=== PATIENT | female | born 1995 | race Hispanic/Latino ===

== ENCOUNTER → 2021-08-18 15:19 | Outpatient (CLI) | payer OTHER, SELFPAY ==
--- NOTE | ~2021-08-18 | US_ITS ---
EXAMINATION: US transvaginal DATE: 08/18/2021 15:43 INDICATION: Excessive and frequent menstruation Comparison:No prior studies for comparison. TECHNIQUE: Multiple endovaginal sonographic images of the pelvis performed. FINDINGS: The uterus measures 7.4 x 3.3 x 4.4 cm. The endometrial complex measures 3 mm. The right ovary measures 3.1 x 2.7 x 1.8 cm and the left ovary measures 3 x 2.2 x 2.7 cm. There are small follicles in each ovary. Normal doppler signal in both ovaries. There is no free fluid in the pelvis. There are no abnormal masses seen on either side. IMPRESSION: 1. Unremarkable pelvic ultrasound Reviewed, dictated and finalized at location A. GING EDITOR
== END ==
PROVIDERS: Visit Provider Nurse Practitioner
DX: N92.0 Excessive and frequent menstruation with regular cycle (principal)
CPT/HCPCS: 76830

== ENCOUNTER → 2021-10-20 13:22 | Outpatient (CLI) | payer OTHER, SELFPAY ==
--- NOTE | ~2021-10-20 | US_ITS ---
EXAMINATION: US transvaginal DATE: 10/20/2021 13:40 INDICATION: Pelvic pain and discharge Comparison:Ultrasound dated 08/18/2021 TECHNIQUE: Multiple endovaginal sonographic images of the pelvis performed. FINDINGS: The uterus measures 7.7 x 3.4 x 4.5 cm. The endometrial complex measures 2 mm. The right ovary measures 3.5 x 1.3 x 2.5 cm and the left ovary measures 3.4 x 2 x 2.4 cm. There are small follicles in each ovary. Normal doppler signal in both ovaries. There is no free fluid in the pelvis. There are no abnormal masses seen on either side. IMPRESSION: 1. Unremarkable pelvic ultrasound. Reviewed, dictated and finalized at location A. O MACHINE OPERATOR
== END ==
PROVIDERS: Visit Provider Nurse Practitioner
DX: R10.2 Pelvic and perineal pain (principal)
CPT/HCPCS: 76830

== ENCOUNTER 2021-12-05 19:04 | Emergency (ER) | payer OTHER, SELFPAY ==
--- NOTE | 2021-12-05 19:06 | ED.EAR ---
HPI - Ear Problem General Chief complaint: Ear Stated complaint: Ear Pain Time Seen by Provider: 12/05/21 19:11 Source: patient, RN notes reviewed and old records reviewed Mode of arrival: ambulatory Limitations: no limitations History of Present Illness HPI Narrative: 26-year-old female presents to the [facility] with complaints of left ear pain. States that she just finished some amoxicillin for a viral infection. Denies fevers. Had used a Q-tip in her ear to help with the discomfort. No other treatment prior to arrival MD Complaint: ear pain (left) Related Data Home Medications Medication Instructions Recorded Confirmed bupropion HCl 150 mg 24 hr tablet, 150 mg PO DAILY 10/18/21 12/05/21 extended release Allergies Allergy/AdvReac Type Severity Reaction Status Date / Time Cat Dander Allergy Mild ITCHING Uncoded 12/05/21 19:21 Dog Dander Allergy Mild ITCHING Uncoded 12/05/21 19:21 red food dye Allergy Hives Uncoded 12/05/21 19:21 Review of Systems Review of Systems: All systems reviewed & are unremarkable except as noted in HPI and below Constitutional: Constitutional: Reports no additional constitutional complaints, Denies chills and Denies fever(s) Eyes: Eyes: Reports no additional eye complaints ENT: Reports as per HPI, Denies change in voice, Denies dental pain, Denies vertigo, Denies dizziness and Denies throat swelling Comments: Ear pain, left Cardiovascular: Cardiovascular: Reports no additional cardiovascular complaints, Denies chest pain and Denies dyspnea Respiratory: Respiratory: Reports no additional respiratory complaints, Denies cough and Denies dyspnea Gastrointestinal: Gastrointestinal: Reports no additional gastrointestinal complaints, Denies abdominal pain, Denies nausea and Denies vomiting Musculoskeletal: Musculoskeletal: Reports no additional musculoskeletal complaints Integumentary/Breasts: Skin/Breast: Reports system reviewed and no additional complaints, except as docu Neurologic: Reports system reviewed and no additional complaints, except as documented, Denies vertigo and Denies dizziness Psychiatric: Psychiatric: Reports no additional psychiatric complaints Allergic/Immunologic: Allergic/Immunologic: Reports no additional allergic/immunologic complaints and Denies throat swelling PMFSH Past Medical History Medical History (Updated 12/05/21 @ 19:28 by Diana Pierce APRN) Anxiety BMI greater than 40 Depression Family History Family History Mother Family history of malignant neoplasm of cervix Social History Social History Smoking status: Current some day smoker Second hand tobacco smoke exposure: No Alcohol intake: current Comments At the time of my signature, I reviewed and agree with the nursing past medical, surgical, social, and family history. There is no relevant family history pertinent to the patient complaint. Exam Const: General: healthy appearing and no acute distress Nutritional Appearance: well nourished and obese Orientation/consciousness: patient oriented x3 Limitations: no limitations HENMT: Head: normal to inspection Ears: external ears normal, TM's normal bilaterally and Abnormal EAC present erythema on the left, edema and EAC tenderness on the left; no foreign body and no otic discharge General nose exam: Normal external nose present and Normal nasal mucous membranes and turbinates present Face and sinus: normal facial exam Mouth: Yes Normal oral and palatal mucosa present Throat: posterior oropharynx normal, tonsils normal and uvula midline Eyes: Conjunctivae: conjunctivae normal Pupils: Equal, round and reactive pupils present Neck: Neck: normal visual inspection, no lymphadenopathy and no meningeal signs Chest: Chest palpation & inspection: normal inspection of the chest Resp: Effort & Inspection: normal respiratory ef
[2021-12-05 19:13] VITALS: BP 128/81; PULSE 89; RESP 16; TEMP 36.4; O2SAT 99
== END 2021-12-05 19:25 | disposition home or self-care (01) ==
PROVIDERS: Emergency Provider Nurse Practitioner; PCP Family Medicine
DX: H60.92 Unspecified otitis externa, left ear (principal); F17.200 Nicotine dependence, unspecified, uncomplicated; F41.9 Anxiety disorder, unspecified; F32.A Depression, unspecified
CPT/HCPCS: 99213; G0463

== ENCOUNTER 2022-01-02 01:07 | Day surgery (SDC) | payer OTHER, SELFPAY ==
[2021-12-27 14:12] VITALS: BMI 44.1
[2022-01-02 06:28] VITALS: BP 130/77; PULSE 84; RESP 20; TEMP 36.8; O2SAT 98
[2022-01-02] MEDS: LACTATED RINGERS 1,000 ML 150 ML IV CONT (06:36)
--- NOTE | 2022-01-02 07:21 | WPDHPUPDATE1 ---
History and Physical Update Update Date/Time: 01/02/22 07:21 History and Physical has been reviewed, including an updated exam of the patient. There are NO changes in the patient's condition. Risks, benefits, and alternatives have been discussed and questions answered. Patient agrees to proceed with procedure.
--- NOTE | 2022-01-02 07:24 | P.PNAN_ITS ---
Anes - Initial Pre Proc Eval Procedure: Operation Date: 01/02/22 07:30 Proposed Procedures p Colonoscopy - Adrien Basilio MD Date/Time: 01/02/22 07:24 Surgeon: Adrien Basilio MD Pre Op Diagnosis: diarrhea Patient Data Age: 26 Gender: F Height: 1.52 m Weight: 102.8 kg Last Vital Signs Temp 98.2 F 01/02/22 06:28 Pulse 84 01/02/22 06:28 Resp 20 01/02/22 06:28 BP 130/77 01/02/22 06:28 Pulse Ox 98 01/02/22 06:28 Allergies Allergy/AdvReac Type Severity Reaction Status Date / Time red food dye Allergy Intermediate Hives Uncoded 01/02/22 06:24 Cat Dander Allergy Mild ITCHING Uncoded 01/02/22 06:24 Dog Dander Allergy Mild ITCHING Uncoded 01/02/22 06:24 Home Medications Medication Instructions Recorded Confirmed Type albuterol sulfate 2 puff INHALATION Q4-6H PRN 12/27/21 12/27/21 History bupropion HCl 300 mg PO DAILY 12/27/21 12/27/21 History norethindrone-e.estradiol-iron [Lo 1 tablet PO DAILY 12/27/21 12/27/21 History Loestrin Fe] Patient hx anesthesia problems: none Family hx anesthesia problems: none Results Review: All pre-operative results and documents have been reviewed as part of the pre-operative evaluation. [facility] Past Medical History Medical History (Updated 12/30/21 @ 15:50 by Derian Quarles DO) Anxiety BMI greater than 40 Depression Family History Family History Mother Family history of malignant neoplasm of cervix Social History Social History (Updated 12/23/21 @ 10:50 by Linda Macias MA) Smoking status: Current some day smoker Tobacco type: e-cigarettes/vaping Second hand tobacco smoke exposure: No Additional smoking assessment comments: TRYING TO QUIT VAPING Alcohol intake: current Substance use: current Substance use type: marijuana Other substance usage details: OCCASSIONAL MARIJUANA Living arrangements: with family Gender identity (if verbalized by the patient): Female Spiritual care concerns: No Anes - Eval Final PreProcedure Day of Procedure 01/02/22 07:24 Patient weight: morbidly obese Heart: regular rate and rhythm Lungs: clear to auscultation Airway: Mallampati scale class III Neurological: alert and oriented Last oral intake: >/= 8 hours ASA classification: III Emergent: no Anesthetic plan: proceed Anesthesia type and monitoring: general GIVS and standard monitoring Results Review: All pre-operative results and documents have been reviewed as part of the pre-operative evaluation. Informed Consent: The patient's anesthetic plan and its attendant risks and benefits were discussed with the patient/family/POA. Questions were solicited and answers provided to the satisfaction of the patient/family/POA.
[2022-01-02 07:44] VITALS: BP 95/49; PULSE 61; RESP 26; O2SAT 100
[2022-01-02 07:54] VITALS: BP 102/64; PULSE 60; RESP 23; O2SAT 100
[2022-01-02 08:04] VITALS: BP 105/64; PULSE 61; RESP 21; O2SAT 100
== END 2022-01-02 08:13 | disposition home or self-care (01) ==
PROVIDERS: PCP Family Medicine; Visit Provider Internal Medicine Gastroenterology
PROC: 0DJD8ZZ Inspection of Lower Intestinal Tract, Via Natural or Artificial Opening Endoscopic (ICD-10-PCS; CPT 45378; principal; 2022-01-02 07:30)
DX: R14.0 Abdominal distension (gaseous) (principal); R19.7 Diarrhea, unspecified; F41.8 Other specified anxiety disorders; Z79.51 Long term (current) use of inhaled steroids; F17.290 Nicotine dependence, other tobacco product, uncomplicated; F12.90 Cannabis use, unspecified, uncomplicated; E66.01 Morbid (severe) obesity due to excess calories; Z68.41 Body mass index [BMI] 40.0-44.9, adult
CPT/HCPCS: 45380; 88305; J2001; J2704; J7120

== ENCOUNTER 2022-11-30 15:45 | Outpatient (CLI) | payer OTHER, SELFPAY ==
--- NOTE | ~2022-11-30 | US_ITS ---
US breast LT complete INDICATION: Intermittent nipple discharge for 6 years TECHNIQUE: Dedicated left breast ultrasound involving all 4 quadrants in the subareolar location COMPARISON: No prior studies for comparison. FINDINGS: The left breast is composed of normal heterogeneous echotexture without focal solid or cyst ic mass. IMPRESSION: 1: Normal left breast ultrasound. BI-RADS CATEGORY 1 - NEGATIVE Reviewed, dictated and finalized at location A.
== END 2022-11-30 15:46 | disposition home or self-care (01) ==
PROVIDERS: PCP Family Medicine; Visit Provider Nurse Practitioner
DX: N64.52 Nipple discharge (principal)
CPT/HCPCS: 76641

== ENCOUNTER 2023-09-28 08:12 | Emergency (ER) | payer OTHER, SELFPAY ==
--- NOTE | ~2023-09-28 | US_ITS ---
EXAMINATION: US pelvic complete DATE: 09/28/2023 11:07 INDICATION: Pelvic pain after intercourse Comparison:Ultrasound dated 10/20/2021 TECHNIQUE: Multiple transabdominal and endovaginal sonographic images of the pelvis performed. FINDINGS: The uterus measures 7.7 x 3.5 x 4.3 cm. There are nabothian cysts. The endometrial complex measures 7 mm. The right ovary measures 4.2 x 2.9 x 3.2 cm and the left ovary measures 2.8 x 1.8 x 2.1 cm. There is a complicated cyst of the right ovary measuring 2.5 cm There are small follicles in each ovary. Maribel l doppler signal in both ovaries. There is trace free fluid in the pelvis. There are no abnormal masses seen on either side. IMPRESSION: 1. Complicated 2.5 cm right ovarian cyst. Reviewed, dictated and finalized at location B. OAT CAPTAIN
[2023-09-28 08:16] VITALS: BP 144/76; PULSE 86; RESP 20; TEMP 36.6; O2SAT 100
[2023-09-28] MEDS: SODIUM CHLORIDE 0.9% IV 1,000 ML 999 ML IV CONT (09:12)
[2023-09-28] MEDS: KETOROLAC 30 MG/ML VIAL (*BKC) IV PUSH (09:12)
[2023-09-28 09:16] LABS: Basophils Absolute Auto 0.1 K/mm3 (0.0-0.1); Basophils Percent Auto 0.7 % (0.2-1.2); Eosinophils Absolute Auto 0.4 K/mm3 (0-0.3); Eosinophils Percent Auto 3.9 % (0-4.4); Hematocrit 38.4 % (37.0-47.0); Hemoglobin 12.7 g/dL (12.0-15.0); Immature Granulocyte Absolute 0.02 K/mm3 (0.00-0.031); Immature Granulocyte Percent A 0.2 % (0-0.5); Lymphocytes Absolute Auto 2.27 K/mm3 (0.9-3.2); Lymphocytes Percent Auto 25.4 % (18.3-44.2); Mean Corpuscular HGB Conc 33.1 g/dl (32-36); Mean Corpuscular Hemoglobin 29.6 pg (26-34); Mean Corpuscular Volume 89.5 fl (80-100); Mean Platelet Volume 10.2 fl (7.4-10.4); Monocytes Absolute Auto 0.5 K/mm3 (0.1-0.6); Monocytes Percent Auto 5.7 % (2.6-8.5); Neutrophils Absolute Auto 5.7 K/mm3 (1.3-6.7); Neutrophils Percent Auto 64.1 % (45.5-73.1); Platelet Count Result 229 k/mm3 (150-375); Red Blood Count 4.29 M/mm3 (4.2-5.4); Red Cell Distribution Width 12.4 % (11.5-14.5)
[2023-09-28 09:22] LABS: Appearance Urine Cloudy (Clear); Bacteria Urine 1+ /hpf; Bilirubin Urine Negative (Negative); Blood Urine Negative (Negative); Color Urine Yellow (Yellow); Glucose Urine UA Negative (Negative); Ketones Urine Negative (Negative); Leukocyte Esterase Ur Negative LEU/UL (Negative); Nitrate Urine Negative (Negative); Non Pathogenic Casts 0-2; Protein Urine Negative (Negative); RBC Urine 0-2 /hpf (0-2); Specific Grav Ur 1.023 (1.001-1.035); Squamous Epithelial Cell Urine Few /hpf (Few); WBC Urine 0-5 /hpf; pH Urine 7.5 (5.0-9.0)
[2023-09-28 09:24] LABS: Add Urine Microscopic? YES
[2023-09-28 09:31] LABS: Alanine Aminotransferase 14 U/L (6-35); Albumin Level 4.3 g/dL (3.5-5.1); Alkaline Phosphatase 87 U/L (38-126); Anion Gap 7 mmol/L (8-16); Aspartate Amino Transferase 20 U/L (14-36); Bilirubin,Total 0.6 mg/dL (0.2-1.3); Blood Urea Nitrogen 12 mg/dL (7-17); Calcium 9.2 mg/dL (8.4-10.2); Carbon Dioxide 27 mmol/L (22-30); Chloride 105 mmol/L (98-107); Estimated CRCL calculation 133 ml/min; Estimated Glomerular Filt Rate > 60; Glucose 115 mg/dL (65-110); Potassium 3.6 mmol/L (3.4-5.0); Sodium 139 mmol/L (137-145)
[2023-09-28 09:46] VITALS: BP 122/73; PULSE 55; RESP 16; O2SAT 100
[2023-09-28 10:50] LABS: Trichomonas Vag PCR NOT DETECTED (NOT DETECTE)
--- NOTE | 2023-09-28 11:20 | ED.GENADULT ---
HPI - General Adult General Chief complaint: INTERNET SALESPERSON Stated complaint: Pelvic pain Time Seen by Provider: 09/28/23 08:41 History of Present Illness HPI narrative: Patient is a 27-year-old female who presents ER with pelvic pain. He began immediately after having sexual intercourse. Cramping in lower abdomen. No radiation. No vaginal bleeding or vaginal discharge. No concerns for STI. She does report she has had some darker urine recently but no dysuria. Has not had similar symptoms before. No history of ovarian cyst. No piercings that could have caused injury. No leakage of fluid. Related Data Allergies Allergy/AdvReac Type Severity Reaction Status Date / Time venlafaxine AdvReac Intermediate Nausea and Verified 09/28/23 08:13 Vomiting Review of Systems Review of Systems: All systems reviewed & are unremarkable except as noted in HPI and below Constitutional: Constitutional: Reports no additional constitutional complaints ENT: Reports system reviewed and no additional complaints, except as documented Cardiovascular: Cardiovascular: Reports no additional cardiovascular complaints Respiratory: Respiratory: Reports no additional respiratory complaints Gastrointestinal: Gastrointestinal: Reports no additional gastrointestinal complaints Genitourinary: Genitourinary: Denies abnormal vaginal bleeding, Denies nocturia, Denies dysuria, Reports pelvic pain and Denies vaginal discharge [facility] Past Medical History Medical History (Updated 09/28/23 @ 11:21 by Nael Howell MD) Abnormal weight loss Anxiety BMI 36.0-36.9,adult BMI 38.0-38.9,adult BMI greater than 40 delivery delivered Depression PMDD (premenstrual dysphoric disorder) Family History Family History Mother Family history of malignant neoplasm of cervix Depression Father No problems noted. Sibling No problems noted. Social History Social History Smoking status: Current some day smoker Tobacco type: e-cigarettes/vaping Second hand tobacco smoke exposure: No Additional smoking assessment comments: TRYING TO QUIT VAPING Alcohol intake: current Substance use: current Substance use type: marijuana Other substance usage details: OCCASSIONAL MARIJUANA Do You Feel Safe in your Home?: Yes Lack of Transportation: No Lack of Food: Never True Current Housing: I Have Housing Concerned About Future Housing: No Difficulty Paying Gas/Electric Bills: No Difficulty Paying for Meds: No Currently Unemployed: No Education: Trade/Vocational Certificate Difficulty w/ Childcare or Family Care: No Living arrangements: with family Occupation/Education: occupation 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 Gender identity (if verbalized by the patient): Female Spiritual care concerns: No Exam Narrative: GENERAL: Well-appearing, well-nourished, and in no acute distress. HEAD: Normocephalic, atraumatic. ENT: Mucous membranes moist. CHEST: Clear to auscultation. No respiratory distress. HEART: Regular rate and rhythm. Normal peripheral pulses. ABDOMEN: Soft, nontender, nondistended. : Mild suprapubic discomfort. Normal external genitalia. Normal appearing cervix that is nonfriable and nontender. Physiologic discharge. EXTREMITIES: Normal range of motion. No edema. SKIN: Warm, dry, no rash. NEURO: Alert and oriented x3. PSYCH: Normal mood and affect. Course Course Emergency Course: Urine without infection. No GC/chlamydia/Trichomonas. Ultrasound with complex cyst. Recommend follow-up with Gynecology. Patient sees Dr. Prais. Vital Signs Vital signs: Vital Signs Temperature 97.9 F 09/28/23 08:16 Pulse Rate 86 09/28/23 08:16 Respiratory Rate 20 09/28/23 08:16 Blood Pressure 144/76 H 09/28/23 08:16 Pulse Oximetry
[2023-09-28 12:50] VITALS: BP 124/68; PULSE 67; RESP 16; O2SAT 100
[2023-09-28 12:53] LABS: Chlamydia trachomatis NOT DETECTED (NOT DETECTE); Neisseria gonorrhoeae PCR NOT DETECTED (NOT DETECTE)
== END 2023-09-28 13:21 | disposition home or self-care (01) ==
PROVIDERS: Emergency Provider Emergency Medicine; PCP Family Medicine
DX: N83.201 Unspecified ovarian cyst, right side (principal); F17.290 Nicotine dependence, other tobacco product, uncomplicated
CPT/HCPCS: 36415; 76856; 80053; 81001; 81025; 85025; 87491; 87591; 87661; 96361; 96374; 99284; J1885; J7030

== ENCOUNTER 2024-07-14 17:09 | Outpatient (CLI) | payer OTHER, SELFPAY ==
--- NOTE | ~2024-07-14 | XR_ITS ---
AP view of the pelvis and AP and lateral views of the bilateral hips Clinical history: Pain Findings: No acute fracture or dislocation is seen. Osseous alignment is anatomic. Bilateral hip and SI joint spaces are preserved. Soft tissues are unremarkable. Impression: No significant abnormality is seen. Reviewed, dictated and finalized at [facility]. ER Impression: No significant abnormality is seen.
--- NOTE | ~2024-07-14 | XR_ITS ---
EXAMINATION: XR scoliosis survey DATE: 07/14/2024 17:37 INDICATION: Deforming dorsopathy, unspecified. TECHNIQUE: Anteroposterior and lateral views of the entire spine standing were obtained. COMPARISON: None. FINDINGS: Right femoral head stands 6 mm higher than the left. There are 12 pairs of ribs. L5 is a tr ansitional segment. There is 10 degrees dextroscoliosis from T3 to T10 by the Thomas method. There is 9 degrees levocurvature from T10 to L4. IMPRESSION: 1. Right femoral head stands 6 mm higher than the left. 2. 10 degrees dextroscoliosis from T3 to T10 and 9 degrees levocurvature from T10 to L4. Reviewed, dictated and finalized at location A. TRIC GOLF CART REPAIRER IMPRESSION: 1. Right femoral head stands 6 mm higher than the left. 2. 10 degrees dextroscoliosis from T3 to T10 and 9 degrees levocurvature from T 10 to L4.
== END 2024-07-14 17:10 | disposition home or self-care (01) ==
LOC: ANHIMG 17:13
PROVIDERS: PCP Family Medicine; Visit Provider Physician Assistant Medical
DX: M43.9 Deforming dorsopathy, unspecified (principal); M54.50 Low back pain, unspecified; G89.29 Other chronic pain; M25.551 Pain in right hip
CPT/HCPCS: 72082; 73521

== ENCOUNTER 2024-08-04 15:17 | Emergency (ER) | payer OTHER, SELFPAY ==
--- NOTE | ~2024-08-04 | CT_ITS ---
CT pelvis wo con Ordering provider: Estefanía Bertrand PA-C History: . right hip/low back pain . Comparison: None Technique: CT pelvis without oral and IV contrast. . Automated exposure control and iterative recons truction technique were employed. The dose-length product was 702.54 mGy-cm. Findings: BONES: No pelvic fracture or hip dislocation. Attempt of sacralization of L5 with left pseudoarthrosi s is noted. Normal visualized lower lumbar spine. The hip and sacroiliac joint spaces are well maintained. SUPERFICIAL SOFT TISSUES: Normal. PELVIC ORGANS: The bladder is underfilled. VISUALIZED BOWEL AND MESENTERY: Normal. No free air or free fluid. No lymphadenopathy. RETROPERITONEUM: normal. IMPRESSION: No acute osseous abnormalities. Attempt of sacralization of L5 with left pseudoarthrosis. Reviewed, dictated and finalized at location A. CTORY COMPILER
[2024-08-04 15:26] VITALS: BP 134/83; PULSE 74; RESP 20; TEMP 36.5; O2SAT 100
--- NOTE | 2024-08-04 20:11 | ED_ITS ---
HPI - Back Pain/Injury General Chief Complaint: Back Pain/Injury Stated Complaint: back/hip pain Time Seen by Provider: 08/04/24 19:55 Source: patient Mode of arrival: ambulatory Limitations: no limitations History of Present Illness HPI Narrative: This is a 28 year old female that presents to the ER for low back pain. Reports she recently started physical therapy for scoliosis. Reports since starting therapy she has had worsening low back and right hip pain. She has not taken anything for pain today. Denies saddle anesthesia or bowel/bladder incontinence. No recent injuries. Related Data Allergies Allergy/AdvReac Type Severity Reaction Status Date / Time venlafaxine AdvReac Intermediate Nausea and Verified 07/14/24 12:50 Vomiting Review of Systems Review of Systems: CONSTITUTIONAL: Denies fever SKIN: Denies rash MUSCULOSKELETAL: Reports back pain, joint pain, and myalgia. NEUROLOGIC: Denies numbness, or weakness. All systems reviewed & are unremarkable except as noted in HPI and below PMFSH Past Medical History Medical History Abnormal weight loss Anxiety BMI 36.0-36.9,adult BMI 37.0-37.9, adult BMI 38.0-38.9,adult BMI greater than 40 delivery delivered Depression Difficulty concentrating PMDD (premenstrual dysphoric disorder) Family History Family History Mother Family history of malignant neoplasm of cervix Depression Father No problems noted. Sibling No problems noted. Social History Social History Smoking status: Current some day smoker Tobacco type: e-cigarettes/vaping Second hand tobacco smoke exposure: No Additional smoking assessment comments: TRYING TO QUIT VAPING Alcohol intake: current Substance use: current Substance use type: marijuana Other substance usage details: OCCASSIONAL MARIJUANA Do You Feel Safe in your Home?: Yes Lack of Transportation: No Lack of Food: Never True Current Housing: I Have Housing Concerned About Future Housing: No Difficulty Paying Gas/Electric Bills: No Difficulty Paying for Meds: No Currently Unemployed: No Education: Trade/Vocational Certificate Difficulty w/ Childcare or Family Care: No Living arrangements: with family Occupation/Education: occupation 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 Gender identity (if verbalized by the patient): Female Spiritual care concerns: No Exam Narrative: GENERAL: Well-appearing, well-nourished, and in no acute distress. HEAD: Normocephalic, atraumatic. EYES: EOMI. CHEST: Clear to auscultation. No respiratory distress. No wheezes rales or rhonchi HEART: Regular rate and rhythm. No murmur heard. Normal peripheral pulses. BACK: No midline spinal tenderness EXTREMITIES: Normal range of motion. No edema. Normal DP pulses. Strength equal in bilateral lower extremities (5/5) SKIN: Warm, dry, no rash. NEURO: No focal deficits. Alert and oriented x3. PSYCH: Normal mood and affect Course Course Emergency Course: patient updated on workup and agrees with plan of care Vital Signs Vital signs: Vital Signs Temperature 97.7 F 08/04/24 15:26 Pulse Rate 74 08/04/24 15:26 Respiratory Rate 20 08/04/24 15:26 Blood Pressure 134/83 08/04/24 15:26 Pulse Oximetry 100 08/04/24 15:26 Oxygen Delivery Room Air 08/04/24 15:26 Temperature 97.7 F 08/04/24 15:26 Pulse Rate 74 08/04/24 15:26 Respiratory Rate 20 08/04/24 15:26 Blood Pressure 134/83 08/04/24 15:26 Pulse Oximetry 100 08/04/24 15:26 Oxygen Delivery Room Air 08/04/24 15:26 MDM - Back Pain/Injury MDM Narrative Medical decision making narrative: Patient presents to the emergency department for worsening low back pain after starting physical therapy. She is afebrile and nontoxic appearing. She is neurologically intact. CT pelvis shows no acute osseous abnormalities. 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 Patient updated on her workup and agrees plan of care. She is to follow up with primary provider. She was given warnings to return to the ER Differential Diagnosis Differential diagnosis: Likely lumbar radiculopathy, sciatica, strain of lumbar region and other (scoliosis) Lab Data Attestation: I reviewed the patient's lab results. Labs: Lab Results 08/04/24 Range/Units 20:54 POC Urine HCG, Qual Negative (Negative) Imaging Data Radiologist's impression: ITS Impressions Pelvis CT 08/04/24 22:21 IMPRESSION: No acute osseous abnormalities. Attempt of sacralization of L5 with left pseudoarthrosis. Critical Care Time Critical Care Time Critical Care Time: No Discharge Plan Discharge Clinical Impression: Nmhznuofvnbqb-mhfthzmhc-[id number] syndrome Patient Disposition: Home, Self-Care Condition: Improved Instructions: Acute Low Back Pain (ED) Additional Instructions: Return to the ER if you experience fever, weakness, numbness, bowel/bladder incontinence, or any other symptoms that are concerning to you Rest, use ice/heat, take anti-inflammatories (Aleve, Ibuprofen, Naproxen, etc) or Tylenol as needed for pain as well as muscle relaxer (Flexeril) as needed for pain. Muscle relaxers can make you drowsy, do not drive if you take this Follow up with your primary care doctor Prescriptions: New cyclobenzaprine 10 mg tablet 10 mg PO TID PRN (Reason: muscle spasm) Qty: 14 0RF No Action buspirone 5 mg tablet 5 mg PO BID Qty: 60 0RF cholecalciferol (vitamin D3) 1,250 mcg (50,000 unit) capsule 1,250 mcg PO WEEKLY Qty: 8 0RF Follow-up/Referrals: Elvis Robins MD [Physician] - Michael Martinez MD [Primary Care Provider] - 2 Days
[2024-08-04] MEDS: ACETAMINOPHEN 500 MG TABLET 1000 MG PO (20:17)
[2024-08-04] MEDS: KETOROLAC 30 MG/ML VIAL (*BKC) IM (20:18)
[2024-08-04 20:55] LABS: BEDSIDEPREGUCG Negative (Negative)
--- NOTE | 2024-08-04 22:58 | PC.NURSE ---
Assumed care of pt from BHAKTI Patel at this time.
== END 2024-08-04 23:59 | disposition home or self-care (01) ==
PROVIDERS: Emergency Provider Physician Assistant; PCP Family Medicine
DX: M43.27 Fusion of spine, lumbosacral region (principal); M54.30 Sciatica, unspecified side; M41.9 Scoliosis, unspecified
CPT/HCPCS: 72192; 81025; 96372; 99284; A9270; J1885

== ENCOUNTER 2024-08-14 13:12 | Outpatient (CLI) | payer OTHER, SELFPAY ==
--- NOTE | ~2024-08-14 | MR_ITS ---
EXAMINATION: MR lumbar spine wo con DATE: 08/14/2024 13:46 INDICATION: Low back pain. Radiculopathy. TECHNIQUE: Magnetic resonance imaging (MRI) of the lumbar spine was performed without intravenous con trast. Sequences included sagittal T2-weighted FSE, sagittal T2-weighted FS FSE, sagittal T1-weighted FSE, and axial T2-weighted FSE. COMPARISON: None FINDINGS: There is 5 degrees levocurvature of lumbar spine. Vertebral body heights and intervertebral disc heights are normal. The distal spinal cord signal intensity is normal. The conus medullaris is at L1. The following disc levels are specifically discussed: L1-L2: The disc does not extend beyond the endplate margin. There is mild bilateral facet joint osteo arthritis. There is no neural foraminal stenosis. There is no central canal stenosis. L2-L3: The disc does not extend beyond the endplate margin. There is mild bilateral facet joint osteo arthritis. There is no neural foraminal stenosis. There is no central canal stenosis. L3-L4: The disc does not extend beyond the endplate margin. There is mild bilateral facet joint osteo arthritis. There is no neural foraminal stenosis. There is no central canal stenosis. L4-L5: There is a left subarticular zone protrusion with annular fissure. There is severe bilateral f acet joint osteoarthritis. There is mild bilateral neural foraminal stenosis. There is mild central c anal stenosis. L5-S1: The disc does not extend beyond the endplate margin. There is severe left facet joint osteoart hritis. There is no neural foraminal stenosis. There is no central canal stenosis. IMPRESSION: 1. Mild lumbar spondylosis. Reviewed, dictated and finalized at location A. LITY COORDINATOR IMPRESSION: 1. Mild lumbar spondylosis.
== END 2024-08-14 13:13 | disposition home or self-care (01) ==
PROVIDERS: PCP Family Medicine
DX: M47.26 Other spondylosis with radiculopathy, lumbar region (principal)
CPT/HCPCS: 72148

== ENCOUNTER 2024-10-30 19:01 | Emergency (ER) | payer OTHER, SELFPAY ==
[2024-10-30 19:03] VITALS: BP 135/88; PULSE 96; RESP 20; TEMP 36.4; O2SAT 99
[2024-10-30 21:16] VITALS: BP 143/90; PULSE 75; RESP 20; TEMP 37.5; O2SAT 97
[2024-10-30 21:18] LABS: BEDSIDEPREGUCG Negative (Negative)
[2024-10-30 21:32] LABS: Add Urine Microscopic? YES; Appearance Urine Turbid (Clear); Bacteria Urine None Seen /hpf; Bilirubin Urine Negative (Negative); Blood Urine 3+ (Negative); Color Urine Dark Yellow (Yellow); Glucose Urine UA Negative (Negative); Ketones Urine 2+ mg/dL (Negative); Leukocyte Esterase Ur 3+ LEU/UL (Negative); Nitrate Urine Negative (Negative); Non Pathogenic Casts 0-2; Protein Urine 3+ mg/dL (Negative); RBC Urine >100 /hpf (0-2); Specific Grav Ur 1.014 (1.001-1.035); Squamous Epithelial Cell Urine None Seen /hpf (Few); Urobilinogen Urine 0.2 mg/dL (<2.0); WBC Urine >100 /hpf (0-3)
[2024-10-31 01:34] VITALS: BP 142/92; PULSE 91; RESP 16; O2SAT 99
[2024-10-31] MEDS: HYDROcodone/acetaminophen (*CRX) 5-325 MG TABLET 1 TAB PO (01:54)
[2024-10-31] MEDS: KETOROLAC (*BKC) 60 MG/2 ML VIAL IM (01:54)
[2024-10-31] MEDS: ONDANSETRON HCL ODT 4 MG TABLET PO (01:55)
[2024-10-31] MEDS: CIPROFLOXACIN 500 MG TAB PO (01:55)
--- NOTE | 2024-10-31 02:25 | ED.FEMALEGU ---
HPI - Female Genitourinary General Chief complaint: Urogenital-Female Stated complaint: worsening UTI Time Seen by Provider: 10/31/24 00:45 History of Present Illness HPI Narrative: Patient is a 29-year-old female who presents to the ER with UTI symptoms for the past 2-3 days. She reports she has a history of scoliosis and recently got a ?back epidural, so she was unsure whether or not her back pain is related to that. Patient endorses significant lower abdominal pain. She also endorses burning urination and frequency. Patient denies any recent fevers, chest pain, shortness of breath, CVA tenderness, or saddle anesthesia. She reports she had a telehealth visit with a healthcare provider yesterday put her on Macrobid but she reports she has only taken 1 dose so far. Patient endorses a history of obesity for which she takes phentermine, otherwise she has no other pertinent medical history. Related Data Home Medications ?Medication ?Instructions ?Recorded ?Confirmed ?Last Taken ?Type cholecalciferol (vitamin D3) 125 125 mcg PO DAILY 10/13/24 10/21/24 Unknown History mcg (5,000 unit) capsule Allergies Allergy/AdvReac Type Severity Reaction Status Date / Time venlafaxine AdvReac Intermediate Nausea and Verified 10/30/24 19:02 Vomiting Review of Systems Review of Systems: All systems reviewed & are unremarkable except as noted in HPI and below PMFSH Past Medical History Medical History BMI 37.0-37.9, adult PMDD (premenstrual dysphoric disorder) BMI 38.0-38.9,adult delivery delivered BMI 36.0-36.9,adult Abnormal weight loss BMI greater than 40 Anxiety Difficulty concentrating Depression Surgical History Surgical History History of delivery Family History Family History Mother Family history of malignant neoplasm of cervix Depression Father Depression Anxiety Alcoholism Sibling Depression Anxiety Grandparent Diabetes mellitus Heart disease Depression Hypertension Anxiety Social History Social History Smoking status: Current some day smoker Tobacco type: e-cigarettes/vaping Second hand tobacco smoke exposure: No Additional smoking assessment comments: TRYING TO QUIT VAPING Alcohol intake: current Alcohol use details: rarely Substance use: current Substance use type: marijuana Other substance usage details: OCCASSIONAL MARIJUANA Do You Feel Safe in your Home?: Yes Lack of Transportation: No Lack of Food: Never True Current Housing: I Have Housing Concerned About Future Housing: No Difficulty Paying Gas/Electric Bills: No Difficulty Paying for Meds: No Currently Unemployed: No Education: Trade/Vocational Certificate Difficulty w/ Childcare or Family Care: No Living arrangements: with family Occupation/Education: occupation 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 Gender identity (if verbalized by the patient): Female Spiritual care concerns: No Exam Narrative: GENERAL: Well appearing, well-nourished, non-toxic, in mild distress d/t abdominal pain. HEAD: Normocephalic, atraumatic. NECK: Supple. No adenopathy, no masses. RESPIRATORY: Airway patent, respirations nonlabored. Clear to auscultation bilaterally, no rales, rhonchi, wheezing. CARDIOVASCULAR: Regular rate and rhythm without murmurs, rubs, or gallops. Peripheral pulses 2+ and equal bilaterally. ABDOMINAL: Soft, tender with palpation in lower quadrants, nondistended, no hepatosplenomegaly. Normoactive BS. MUSCULOSKELETAL: Moves all extremities. Strength/ROM intact without gross deformities. SKIN: Warm, dry, normal color. No rashes. NEURO: A&O X3. Speech clear. Cranial nerves II-XII grossly intact. Steady gait. No ataxic movements. PSYCHIATRIC: Appropriate mood and affect. Normal interaction. Course Vital Signs Vital signs: Vital Signs Temperature 36.4 C 10/30/24 19:03 Pulse Rate 96 10/30/24 19:03 Respiratory Rate 20 10/30/24 19:03 Blood Pressure 135/88 10/30/24 19:03 Pulse Oximetry 99 10/30/24 19:03 Oxygen Delivery Room Air 10/30/24 19:03 Temperature 37.5 C 10/30/24 21:16 Pulse Rate 91 10/31/24 01:34 Respiratory Rate 16 10/31/24 01:34 Blood Pressure 142/92 H 10/31/24 01:34 Pulse Oximetry 99 10/31/24 01:34 Oxygen Delivery Room Air 10/30/24 19:03 MDM - Female Genitourinary MDM Narrative Medical decision making narrative: Patient is a 29-year-old female who presents to the ER with UTI symptoms for the past 2-3 days. She reports she has a history of scoliosis and recently got a ?back epidural, so she was unsure whether or not her back pain is related to that. Patient endorses significant lower abdominal pain. She also endorses burning urination and frequency. Patient denies any recent fevers, chest pain, shortness of breath, CVA tenderness, or saddle anesthesia. She reports she had a telehealth visit with a healthcare provider yesterday put her on Macrobid but she reports she has only taken 1 dose so far. Patient endorses a history of obesity for which she takes phentermine, otherwise she has no other pertinent medical history. Labs Ordered: Urinalysis, urine bedside Imaging Ordered: None necessary Medications Ordered: Toradol, [place], Zofran, Ciprofloxacin Results: Patient's urinalysis was positive for a urinary tract infection. Patient Education/Shared MDM: Results shared with patient. She endorses pain improvement following medication administration. Patient strongly advised to maintain hydration status upon discharge and follow-up with her PCP as soon as possible. She will be discharged home with prescription for Ciprofloxacin and Pyridium. Strict return precautions provided. Patient verbalized understanding is in agreement with plan. Vital signs stable at time of discharge. All questions answered. Differential Diagnosis Differential diagnosis: Likely urinary tract infection, dysmenorrhea and other (lower back pain) Lab Data Attestation: I reviewed the patient's lab results. Labs: Lab Results 10/30/24 10/30/24 Range/Units 21:13 21:16 Urine Color Dark yellow (Yellow) Urine Appearance Turbid H (Clear) Urine pH 6.0 (5.0-9.0) Ur Specific [place] 1.014 (1.001-1.035) Urine Protein 3+ H (Negative) mg/dL Urine Glucose (UA) Negative (Negative) mg/dL Urine Ketones 2+ H (Negative) mg/dL Ur Blood (Man) 3+ H (Negative) Urine Nitrate Negative (Negative) Urine Bilirubin Negative (Negative) Urine Urobilinogen 0.2 (<2.0) mg/dL Leukocyte Esterase Rfl 3+ H (Negative) JENNIFER/UL Urine RBC >100 H (0-2) /hpf Urine WBC >100 H (0-3) /hpf Ur Squamous Epith Cells None seen (Few) /hpf Urine Bacteria None seen /hpf Urine Casts 0-2 POC Urine HCG, Qual Negative (Negative) Discharge Plan Discharge Clinical Impression: Urinary tract infection, Bladder pain Patient Disposition: Home, Self-Care Condition: Stable Instructions: Antibiotic Form, Urinary Tract Infection in Women (ED) Additional Instructions: Please return to the ER with an worsening symptoms. Follow-up with primary care provider in the next 2-3 days. Take all medications as prescribed. Complete your whole dose of antibiotic. Patient Language: Malawian Prescriptions: New ciprofloxacin HCl 500 mg tablet 500 mg PO Q12H Qty: 7 0RF phenazopyridine [Pyridium] 100 mg tablet 100 mg PO TID PRN (Reason: pain) Qty: 6 0RF No Action gabapentin 300 mg capsule 300 mg PO QHS Qty: 30 1RF cholecalciferol (vitamin D3) 125 mcg (5,000 unit) capsule 125 mcg PO DAILY phentermine 37.5 mg capsule 37.5 mg PO DAILY 90 Days Qty: 90 2RF Rx Instructions: must administer 30 minutes before or 1-2 hours after breakfast Follow-up/Referrals: Michael Martinez MD [Primary Care Provider] - Stand Alone Forms: Work/School Release IP Time of Disposition: 02:34
== END 2024-10-31 02:45 | disposition home or self-care (01) ==
PROVIDERS: Student in an Organized Health Care Education/Training Program; Emergency Provider Registered Nurse; PCP Family Medicine
DX: N39.0 Urinary tract infection, site not specified (principal); M41.9 Scoliosis, unspecified; F17.290 Nicotine dependence, other tobacco product, uncomplicated; Z79.899 Other long term (current) drug therapy
CPT/HCPCS: 81001; 81025; 87086; 96372; 99283; A9270; J1885

== ENCOUNTER 2024-11-18 09:11 | Emergency (ER) | payer OTHER, SELFPAY ==
[2024-11-18 09:19] VITALS: BP 150/111; PULSE 78; RESP 14; TEMP 36.6; O2SAT 98
--- NOTE | 2024-11-18 09:22 | ED.EAR ---
HPI - Ear Problem General Chief complaint: Ear Stated complaint: left ear pain Time Seen by Provider: 11/18/24 09:32 Source: patient and RN notes reviewed Mode of arrival: ambulatory Limitations: no limitations History of Present Illness HPI Narrative: 29-year-old female presents concern for left ear and jaw pain. Reports on Sunday she thought she had a piece of cotton stuck in her ear so she tried to remove it with a yoan hook. Reports she had bleeding at that time. Does not had any subsequent bleeding. She reports she has had an earache since then. She reports the earache is making her feel dizzy, and she also has left jaw pain near the ear. She reports that pain is worse with chewing. Reports she feels dizzy when she turns her head or stands up. She head injury MD Complaint: ear pain Related Data Home Medications ?Medication ?Instructions ?Recorded ?Confirmed ?Last Taken ?Type cholecalciferol (vitamin D3) 125 125 mcg PO DAILY 10/13/24 11/18/24 Unknown History mcg (5,000 unit) capsule Allergies Allergy/AdvReac Type Severity Reaction Status Date / Time venlafaxine AdvReac Intermediate Nausea and Verified 11/18/24 09:20 Vomiting Review of Systems Review of Systems: CONSTITUTIONAL: Denies malaise, chills, sweats, or fever. EYES: Denies visual changes, redness, or discharge. ENT: Denies rhinorrhea, congestion, sinus pain, and sore throat. Reports left ear pain. Reports left dental pain CARDIOVASCULAR: Denies chest pain, palpitations, or edema. RESPIRATORY: Denies cough. Denies dyspnea. GASTROINTESTINAL: Denies abdominal pain, nausea, vomiting, diarrhea SKIN: Denies rash or itching. MUSCULOSKELETAL: Denies myalgia. NEUROLOGIC: Denies headache. Reports dizziness All systems reviewed & are unremarkable except as noted in HPI and below PMFSH Past Medical History Medical History BMI 37.0-37.9, adult PMDD (premenstrual dysphoric disorder) BMI 38.0-38.9,adult delivery delivered BMI 36.0-36.9,adult Abnormal weight loss BMI greater than 40 Anxiety Difficulty concentrating Depression Surgical History Surgical History History of delivery Family History Family History Mother Family history of malignant neoplasm of cervix Depression Father Depression Anxiety Alcoholism Sibling Depression Anxiety Grandparent Diabetes mellitus Heart disease Depression Hypertension Anxiety Social History Social History Smoking status: Current some day smoker Tobacco type: e-cigarettes/vaping Second hand tobacco smoke exposure: No Additional smoking assessment comments: TRYING TO QUIT VAPING Alcohol intake: current Alcohol use details: rarely Substance use: current Substance use type: marijuana Other substance usage details: OCCASSIONAL MARIJUANA Do You Feel Safe in your Home?: Yes Lack of Transportation: No Lack of Food: Never True Current Housing: I Have Housing Concerned About Future Housing: No Difficulty Paying Gas/Electric Bills: No Difficulty Paying for Meds: No Currently Unemployed: No Education: Trade/Vocational Certificate Difficulty w/ Childcare or Family Care: No Living arrangements: with family Occupation/Education: occupation 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 Gender identity (if verbalized by the patient): Female Spiritual care concerns: No Comments At time of signature, agree with nursing past medical, surgical, social and family history. There is no relevant family history pertinent to the presenting complaint Exam Narrative: GENERAL: Well-appearing, well-nourished, and in no acute distress. HEAD: Normocephalic EYES: PERRLA, conjunctivae clear ENT: Nares clear. Mucous membranes moist. TM pearly jameson with sharp light reflex bilaterally; no tragal tenderness. Small healing scab noted to the left TM without any erythema, edema. Left EAC normal without injury. Oropharynx not erythematous without lesions. Tonsils not enlarged and without exudate, no drooling, no hoarseness, no trismus, uvula midline. NECK: Supple. No lymphadenopathy CHEST: Clear to auscultation, breath sounds equal. No wheezing, rhonchi, rales, or stridor. No respiratory distress, speaks in full sentences. HEART: Regular rate and rhythm. No murmur heard. SKIN: Warm, dry, no rash. NEURO: Alert and oriented x3. No focal deficits. Cranial nerves 2-12 grossly intact PSYCH: Normal mood and affect Course Course Emergency Course: Will treat patient for possible dental infection, vertigo. Given patient referral to ENT for further evaluation of chronic ear pain. Patient is aware of, understands and agrees to treatment plan. Anticipatory guidance given. Patient agrees to follow-up as directed and is aware of reasons to seek care at the emergency department. Portions of this record may have been created with voice recognition software Level of Care: [facility] Visit Vital Signs Vital signs: Vital Signs Temperature 98 F 11/18/24 09:19 Pulse Rate 78 11/18/24 09:19 Respiratory Rate 14 11/18/24 09:19 Blood Pressure 150/111 H 11/18/24 09:19 Pulse Oximetry 98 11/18/24 09:19 Oxygen Delivery Room Air 11/18/24 09:19 Temperature 98 F 11/18/24 09:19 Pulse Rate 78 11/18/24 09:19 Respiratory Rate 14 11/18/24 09:19 Blood Pressure 150/111 H 11/18/24 09:19 Pulse Oximetry 98 11/18/24 09:19 Oxygen Delivery Room Air 11/18/24 09:19 Reviewed. Medical Decision Making MDM Narrative Medical decision making narrative: I evaluated this in the [facility]. History is obtained from patient who is an independent historian and physical exam was performed.? Available medical records were reviewed. ? Exam findings and relevant testing show no acute concerns or changes; patient is non-toxic appearing and is in no distress. Differential diagnosis considered: Coleman virus, strep pharyngitis, allergic rhinitis, upper respiratory tract infection, sinusitis, rhinosinusitis, nasopharyngitis. viral pharyngitis, otitis media, otitis externa, otitis effusion, cerumen impaction, foreign body. Exam findings show no acute concerns or changes; patient is non-toxic appearing and is in no distress. Patient is appropriate for outpatient treatment and follow-up. ? Differential diagnosis and treatment plan were discussed with the patient. Patient agrees with discussion and after shared medical decision making agrees with plan of care. All questions were answered to the patient's satisfaction. Patient is appropriate for outpatient treatment and follow-up. Vital Signs Vital Signs: Vital Signs Temperature 98 F 11/18/24 09:19 Pulse Rate 78 11/18/24 09:19 Respiratory Rate 14 11/18/24 09:19 Blood Pressure 150/111 H 11/18/24 09:19 Pulse Oximetry 98 11/18/24 09:19 Oxygen Delivery Room Air 11/18/24 09:19 Temperature 98 F 11/18/24 09:19 Pulse Rate 78 11/18/24 09:19 Respiratory Rate 14 11/18/24 09:19 Blood Pressure 150/111 H 11/18/24 09:19 Pulse Oximetry 98 11/18/24 09:19 Oxygen Delivery Room Air 11/18/24 09:19 Critical Care Time Critical Care Time Critical Care Time: No Discharge Plan Discharge Clinical Impression: Toothache, Dizzinesses Patient Disposition: Home, Self-Care Condition: Stable Instructions: Antibiotic Form, Toothache (ED) Additional Instructions: Take antibiotic as directed Avoid temperature extremes May apply heat or ice to the face Gentle brushing and flossing Take 2 extra strength Tylenol, 4 ibuprofen, 80 mg of caffeine at same time. You can do this every 6 hours. Do not do this for more than 2 - 3 days. You can substitute 25 mg Benadryl at nighttime for caffeine to help you sleep. Do this for no more than 3 days. Follow-up with the dentist as soon as possible - see the list provided Dizziness: Certain movements done in a specific way can help vertigo. You can try one or both of the following maneuvers: Kori Maneuver: 1) Sit with a pillow behind your head. Turn head to the affected side, lie down quickly keeping your head turned. 2) Remain in this position until dizziness stops + 30 seconds 3) Slowly turn your head in the opposite direction. Remain in that position until you are not dizzy + 30 seconds 4) Staying on that side, raise onto your shoulder/side keeping your head turned and your face pointed to the floor. Stay in this position until you are not dizzy + 30 seconds 5) Slowly return to sitting 6) Repeat every hour until vertigo is resolved. Vertigo Maneuver: 1) Kneel on the floor, look up to the ceiling. Turn the head upside down so the top of your head touches the floor 2) Turn your head quickly to the affected side. Wait 30 seconds 3) Quickly raise your head to be level with your back (back is flat/horizontal). Stay in this position for 30 seconds 4) Raise up to your knees keeping your head turned 4) Repeat every hour until vertigo resolves If you experience dizziness that persists, severe headache, weakness in any extremity, difficulty speaking or swallowing, you pass out, or for any other urgent concerns you should go to the ER. Make a follow-up appointment with your PCP for further evaluation of your vertigo. Patient Language: Australian Prescriptions: No Action ciprofloxacin HCl 500 mg tablet 500 mg PO Q12H gabapentin 300 mg capsule 300 mg PO QHS Qty: 30 1RF cholecalciferol (vitamin D3) 125 mcg (5,000 unit) capsule 125 mcg PO DAILY phentermine 37.5 mg capsule 37.5 mg PO DAILY 90 Days Qty: 90 2RF Rx Instructions: must administer 30 minutes before or 1-2 hours after breakfast Follow-up/Referrals: Ruben Calderón MD [Physician] - (Chronic ear pain) Michael Martinez MD [Primary Care Provider] - Stand Alone Forms: Work/School Release IP Time of Disposition: 09:45
== END 2024-11-18 09:56 | disposition home or self-care (01) ==
PROVIDERS: Emergency Provider Nurse Practitioner; PCP Family Medicine
DX: K08.89 Other specified disorders of teeth and supporting structures (principal); R42 Dizziness and giddiness; F17.290 Nicotine dependence, other tobacco product, uncomplicated
CPT/HCPCS: 99211; G0463